=== PATIENT | female | born 1970 | race Caucasian/White ===

== ENCOUNTER → 2016-09-02 | Outpatient (CLI) | payer BC ==
[~2016-09-02] MED LIST: AMBIEN 5 MG TABL5 M1 PO; COLACE100 MG PO; ENBREL SQ; FOLIC ACID1 MG PO; HYDROCODON-ACE1 EAC7 PO; IBUPROFEN 800800 M1 PO; INVANZ IV; KEFLEX500 MG; METHOTREXA1 GM/40 M2 SUBQ; METHOTREXATE 22.5 MG; METOCLOPRAMIDE 55 MG PO; MOM PO; MULTIVITAMINS PO; NORCO 5-325 TA1 EACH PO; PERCOCET 5-3251 EACH PO; PREVACID15 MG PO; PROAIR HFA8.5 GM; PROAIR HFA8.5 GM IH; PROTONIX40 M2 PO; SYMBICORT160 MCG/4.; VITAMIN D400 UNI1 PO
== END ==
LOC: RAD 08:31
DX: Z12.31 Encounter for screening mammogram for malignant neoplasm of breast (principal)